=== PATIENT | male | born 1990 | race Caucasian/White ===

== ENCOUNTER 2016-10-31 10:14 | Emergency (ER) | payer OTHER ==
[2016-10-31 10:23] VITALS: BP 130/61
--- NOTE | 2016-10-31 11:00 | UC ---
Upper Extremity HPI - HPI Summary HPI Summary: Painful, itchy rash in bilat axilla for three months. Denies recent abx or steroids, no systemic symptoms or skin problems elsewhere. - History of Current Complaint Chief Complaint: UCRash Stated Complaint: RASH Time Seen by Provider: 10/31/16 10:51 Hx Obtained From: Patient ?: No Onset/Duration: Gradual Onset, Lasting Weeks Severity Initially: Mild Severity Currently: Mild Character: Burning Aggravating Factor(s): Nothing Alleviating Factor(s): Nothing Associated Signs And Symptoms: Positive: Redness - Allergies/Home Medications Allergies/Adverse Reactions: Allergies Allergy/AdvReac Type Severity Reaction Status Date / Time Corticosteroids Allergy Unknown Verified 10/31/16 10:23 Reaction Details PMH/Surg Hx/FS Hx/Imm Hx Previously Healthy: Yes - Surgical History Surgical History: None - Family History Known Family History: Positive: Hypertension - Social History Alcohol Use: Occasionally Substance Use Type: None Smoking Status (MU): Never Smoked Tobacco Review of Systems Constitutional: Negative Skin: Rash - bilat axillae Eyes: Negative ENT: Negative Respiratory: Negative Cardiovascular: Negative Gastrointestinal: Negative Genitourinary: Negative Motor: Negative Neurovascular: Negative Musculoskeletal: Negative Neurological: Negative Psychological: Negative All Other Systems Reviewed And Are Negative: Yes Physical Exam Triage Information Reviewed: Yes Appearance: Well-Appearing, No Pain Distress, Well-Nourished Vital Signs: Initial Vital Signs Temp 98.2 F 10/31/16 10:19 Pulse 69 10/31/16 10:19 Resp 18 10/31/16 10:19 BP 130/61 10/31/16 10:19 Pulse Ox 99 10/31/16 10:19 Vital Signs Reviewed: Yes Eye Exam: Normal Eyes: Positive: Conjunctiva Clear ENT Exam: Normal ENT: Positive: Normal ENT inspection, Hearing grossly normal, Pharynx normal, TMs normal Dental Exam: Normal Neck exam: Normal Neck: Positive: Supple, Nontender, No Lymphadenopathy Respiratory Exam: Normal Respiratory: Positive: Chest non-tender, Lungs clear, Normal breath sounds, No respiratory distress, No accessory muscle use Cardiovascular Exam: Normal Cardiovascular: Positive: RRR, No Murmur Musculoskeletal Exam: Normal Neurological Exam: Normal Neurological: Positive: Alert Psychological Exam: Normal Skin Exam: Other - red confluent irregular plaques in skin folds on bilat axillae with fine white scale. Several satellite lesions on both sides. Upper Extremity Course/Dx - Differential Dx/Diagnosis Provider Diagnoses: intertrigo bilat axillae. elevated blood pressure due to discomfort Discharge - Discharge Plan Condition: Stable Disposition: HOME
== END 2016-10-31 11:05 | disposition home or self-care (01) ==
LOC: UCEAST 10:14
DX: L30.4 Erythema intertrigo (principal); R03.0 Elevated blood-pressure reading, without diagnosis of hypertension
CPT/HCPCS: 99202; G0463